=== PATIENT | male | born 1965 | race Caucasian/White ===

== ENCOUNTER → 2022-07-16 | Outpatient (CLI) | payer OTHER | LOC: M SOG 07:47 | PROVIDERS: ATTEND Orthopaedic Surgery | DX: M51.34 Other intervertebral disc degeneration, thoracic region (principal); M51.36 Other intervertebral disc degeneration, lumbar region; M41.9 Scoliosis, unspecified ==

== ENCOUNTER → 2023-11-22 | Outpatient (CLI) | payer OTHER ==
[~2023-11-22] MED LIST: LIDOCAINE 1% MDV 20ML VIAL As Ordered ONE
[2023-11-22 12:55] VITALS: TEMP 98.1
[2023-11-22 15:33] VITALS: BP 108/62; O2SAT 94
== END ==
LOC: M IRPRO 12:31
PROVIDERS: ATTEND Nurse Practitioner Family
DX: K74.60 Unspecified cirrhosis of liver (principal)

== ENCOUNTER → 2024-08-09 | Outpatient (CLI) | payer OTHER | LOC: M PLAIMG 09:23 | PROVIDERS: ATTEND Registered Nurse | DX: M51.26 Other intervertebral disc displacement, lumbar region (principal) ==